=== PATIENT | female | born 1980 | race Hispanic/Latino ===

== ENCOUNTER 2018-10-24 14:42 | Emergency (ER) | payer BC ==
[~2018-10-24] VITALS: Ht 137.2 cm; Wt 51.0 kg
[~2018-10-24 14:42] MED LIST: AMOXICILLIN500 MG PO; CARAFATE1 GM PO; CEPHALEXIN500 MG PO; FLAGYL500 MG PO; NAPROSYN500 MG PO; NEXIUM40 MG PO; NORCO1 TA2 PO; OMEPRAZOLE20 MG PO; QUASENSE PO; XYLOCAINE VISCOUS PO; ZOFRAN ODT8 MG OR; [UNRECOGNIZED DRUG - CODE] OR; [UNRECOGNIZED DRUG - CODE] PO
[2018-10-24] MEDS ORDERED: FLEXERIL5 MG PO (16:18)
[2018-10-24 16:24] VITALS: BP 128/77
[2018-11-02] MEDS ORDERED: BL IBUPROFEN200 MG PO (15:33)
== END 2018-10-24 16:24 | disposition home or self-care (01) | DRG 552 ==
LOC: ED 14:42
DX: S16.1XXA Strain of muscle, fascia and tendon at neck level, initial encounter (principal); K80.20 Calculus of gallbladder without cholecystitis without obstruction; W18.30XA Fall on same level, unspecified, initial encounter; Y92.009 Unspecified place in unspecified non-institutional (private) residence as the place of occurrence of the external cause

== ENCOUNTER → 2018-11-02 | Outpatient (REF) | payer BC ==
[~2018-11-02] VITALS: Ht 132.1 cm; Wt 48.5 kg
[~2018-11-02] MED LIST changes: +BL IBUPROFEN200 MG PO; +FLEXERIL5 MG PO
[2018-11-02 15:43] VITALS: BP 120/81
== END | disposition home or self-care (01) | DRG 951 ==
LOC: PO 11:29 → ORM 11:30
PROVIDERS: ATTEND Surgery
DX: Z01.818 Encounter for other preprocedural examination (principal); K81.0 Acute cholecystitis; Z90.710 Acquired absence of both cervix and uterus; Z87.42 Personal history of other diseases of the female genital tract; Z90.721 Acquired absence of ovaries, unilateral; Z97.3 Presence of spectacles and contact lenses

== ENCOUNTER 2018-11-07 08:38 | Day surgery (SDC) | payer BC ==
[2018-11-07 13:34] VITALS: BP 107/72
== END 2018-11-07 12:51 | disposition home or self-care (01) | DRG 419 ==
LOC: ORM 08:38
PROVIDERS: ATTEND Surgery
PROC: 0FT44ZZ Resection of Gallbladder, Percutaneous Endoscopic Approach (ICD-10-PCS; principal; 2018-11-07)
PROC: BF001ZZ Plain Radiography of Bile Ducts using Low Osmolar Contrast (ICD-10-PCS; 2018-11-07)
DX: K80.10 Calculus of gallbladder with chronic cholecystitis without obstruction (principal)
CPT/HCPCS: J0131; J2710; Q9967

== ENCOUNTER 2019-03-10 08:13 | Emergency (ER) | payer BC ==
[~2019-03-10] VITALS: Ht 132.1 cm; Wt 50.0 kg
[2019-03-10] MEDS ORDERED: FLEXERIL PO (10:30)
[2019-03-10] MEDS ORDERED: NAPROSYN500 MG PO (10:30)
[2019-03-10 10:45] VITALS: BP 112/74
== END 2019-03-10 10:45 | disposition home or self-care (01) | DRG 605 ==
LOC: ED 08:13
DX: S30.0XXA Contusion of lower back and pelvis, initial encounter (principal); W19.XXXA Unspecified fall, initial encounter

== ENCOUNTER 2019-09-07 | Emergency (ER) | payer BC ==
[~2019-09-07] MED LIST changes: +FLEXERIL PO
[2019-09-07] MEDS ORDERED: IBUPROFEN600 MG PO (06:40)
[2019-09-07] MEDS ORDERED: CYCLOBENZAPR5 MG PO (06:40)
== END 2019-09-07 08:49 | disposition home or self-care (01) | DRG 552 ==
DX: M62.830 Muscle spasm of back (principal)

== ENCOUNTER 2020-01-15 | Emergency (ER) | payer BC ==
[~2020-01-15] MED LIST changes: +CYCLOBENZAPR5 MG PO; +IBUPROFEN600 MG PO
[2020-01-15 15:26] LABS: HEMATOCRIT 36.6 % (37.0-47.0); HEMOGLOBIN 12.4 g/dl (12.0-16.0); IMMATURE GRANULOCYTES 0.5 % (0.0-5.0); MEAN CELL VOLUME 85.3 fL CALC (80.0-100.0); MEAN CORPUSCULAR HGB 28.9 pG CALC (26.0-32.0); MEAN CORPUSCULAR HGB CONC 33.9 g/dL CAL (32.0-36.0); NEUT# 5.86 thou/uL (2.00-7.15); RED BLOOD COUNT 4.29 mill/uL (4.20-5.60); RED CELL DISTRI WIDTH 12.6 % (11.5-15.5)
[2020-01-15 15:43] LABS: ACT PARTIAL THROMBO TIME 26.9 SECONDS (20.0-32.5); INTERNATIONAL NORMALIZED RATIO 0.9 RATIO (0.7-1.3); PROTHROMBIN TIME 9.9 SECONDS (9.0-12.5)
[2020-01-15 15:44] LABS: ALBUMIN 5.1 g/dL (3.2-5.0); ALKALINE PHOSPHATASE 67 u/l (38-126); ANION GAP 14 (6-22 (CALC)); BILIRUBIN, TOTAL 0.4 mg/dL (0.0-1.4); BUN 12 mg/dL (7-17); BUN/CREATININE RATIO 24 (12-20 (CALC)); CARBON DIOXIDE 28 mmol/l (22-30); CHLORIDE 101 mmol/l (95-108); CREATININE 0.5 mg/dL (0.5-1.0); GFR > 60 ML/MIN (>=60 (CALC)); GFR FOR AFR.AMER. > 60 ML/MIN (>=60 (CALC)); POTASSIUM 3.7 mmol/l (3.5-5.1); SGOT/AST 26 u/l (14-36); SODIUM 139 mmol/l (137-146); TOTAL PROTEIN 8.5 g/dL (6.3-8.2)
[2020-01-15 15:56] LABS: BARBITURATES NEGATIVE (NEGATIVE); COCAINE NEGATIVE (NEGATIVE); METHADONE NEGATIVE (NEGATIVE); OXCYCODONE NEGATIVE (NEGATIVE); TETRAHYDROCANNABIONOL NEGATIVE (NEGATIVE); TRICYLIC ANTIDEPRESSANTS NEGATIVE (NEGATIVE); URINE BILIRUBIN - DIPSTICK NEGATIVE (NEGATIVE); URINE BLOOD DIPSTICK NEGATIVE (NEGATIVE); URINE COLOR YELLOW; URINE GLUCOSE - DIPSTICK NEGATIVE (NEGATIVE); URINE KETONE NEGATIVE (NEGATIVE); URINE LEUK ESTERASE NEGATIVE (NEGATIVE); URINE NITRITE - DIPSTICK NEGATIVE (Negative); URINE PROTEIN - DIPSTICK NEGATIVE (NEG-TRACE); URINE UROBILINOGEN - DIPSTICK 0.2 E.U./dL (0.2)
[2020-01-15] MEDS ORDERED: FIORICET PO (16:53)
== END 2020-01-15 17:05 | disposition home or self-care (01) | DRG 103 ==
PROVIDERS: Emergency Medicine
DX: R51 Headache (principal); Z84.89 Family history of other specified conditions